=== PATIENT | female | born 1975 | race Caucasian/White ===

== ENCOUNTER 2017-02-18 09:28 | Day surgery (SDC) | payer OTHER ==
[2017-02-15 09:12] VITALS: BMI 32.8
[~2017-02-18 09:28] MED LIST: LACTATED RINGERS 1,000 ML IV SCH; LIDOCAINE 1% 20 ML VIAL (10MG/ML) FOR IV START INTRADERMA PRN
[2017-02-18 10:02] VITALS: RESP 18; TEMP 98
[2017-02-18] MEDS ORDERED: LACTATED RINGERS 1,000 ML IV ONE (10:05)
[2017-02-18] MEDS ORDERED: PROPOFOL 10 MG/ML 20 ML VIAL IV ONE (11:22)
[2017-02-18 12:07] VITALS: BP 116/63; PULSE 60
--- NOTE | 2017-02-18 12:45 | P.PCN ---
Date of Procedure: 02/18/17 Preoperative Diagnosis: Postoperative Diagnosis: Procedure(s) Performed: Brief history: Patient is a pleasant 41-year-old white female, scheduled for an elective upper endoscopy as well as colonoscopy as a part of evaluation of abdominal pain, intermittent nausea vomiting and change in bowel habits for the last 3 months duration. Procedure performed: Esophagogastroduodenoscopy with biopsy Colonoscopy with biopsy Preoperative diagnosis: Abdominal pain, change in bowel habits, nausea vomiting Anesthesia: MAC Procedure: After informed consent was obtained from the patient was brought into the endoscopy unit and IV sedation was administered by anesthesia under continuous monitoring. Initially upper endoscopy was done. The Olympus GF 160 video endoscope was inserted inserted into the mouth and esophagus intubated without any difficulty and was gradually advanced into the stomach and duodenum and carefully examined. The bulb and second part of the duodenum appeared normal. The scope was then withdrawn into the stomach adequately insufflated with air and upon careful examination the antrum had mild gastritis and biopsies were done from this area. The body, cardia and fundus appeared normal. The scope was then withdrawn into the esophagus. The GE junction was located at 40 cm to the incisors. It appeared regular with no erythema erosions or ulcerations. Rest of the esophagus appeared normal. Patient tolerated the procedure well. At this time the patient continued to remain sedation. Initial digital rectal examination was normal. Olympus CF 160 video colonoscope was then inserted into the rectum and gradually advanced to the cecum without any difficulty. Careful examination was performed as the scope was gradually being withdrawn. The prep was excellent. The cecum, ascending colon, transverse colon, descending colon, sigmoid colon and rectum appeared normal. Retroflexion was performed in the rectum and no lesions were noted. Patient tolerated the procedure well. random biopsies were done from the ascending and descending colon to rule out microscopic/collagenous colitis Impression: 1. Upper endoscopy revealed mild antral gastritis but no evidence of esophagitis or peptic ulcer disease 2. Colonoscopy was essentially within normal limits with no evidence of colitis or colorectal neoplasia Recommendations: Findings of this examination were discussed with the patient as well as her family. She was advised to follow with the biopsy results. She'll be seen in the office in 3-4 weeks. Implants: Indications for Procedure: Operative Findings: Description of Procedure:
== END 2017-02-18 12:31 | disposition home or self-care (01) ==
LOC: ORWHC2ENDO 09:28
PROVIDERS: ATTEND Internal Medicine Gastroenterology
DX: K29.50 Unspecified chronic gastritis without bleeding (principal); R19.4 Change in bowel habit; J45.909 Unspecified asthma, uncomplicated; K21.9 Gastro-esophageal reflux disease without esophagitis; Z79.1 Long term (current) use of non-steroidal anti-inflammatories (NSAID); Z79.52 Long term (current) use of systemic steroids; Z79.899 Other long term (current) drug therapy
CPT/HCPCS: 81025; 88305; 88342; 45380; 43239; J2704

== ENCOUNTER 2017-04-20 17:10 | Emergency (ER) | payer OTHER ==
[2017-04-20 17:37] VITALS: RESP 18
--- NOTE | 2017-04-20 18:40 | ED ---
General Adult HPI - General Chief complaint: Urogenital Stated complaint: Female Time Seen by Provider: 04/20/17 18:09 Source: patient, RN notes reviewed Mode of arrival: ambulatory Limitations: no limitations - History of Present Illness Initial comments: This is a 41-year-old female who presents to the emergency department today with chief complaint of vaginal sores. Four days ago she developed vaginal itching and believes she had a yeast infection and treated herself with over-the -counter Nystatin. She discontinued the Nystatin 2 days ago because she developed vaginal sores and tenderness to the external genitalia. Patient claims she has not been sexually active for the last 3 years and there is no chance she could have an STD. Patient also complains of bilateral lower back pain. She does state that she works at an [employer] home and lifts heavy weight daily. Will run a UA on her to rule out any urinary pathology. - Related Data Home Medications Medication Instructions Recorded Confirmed Dicyclomine [Bentyl] 10 mg PO TID 02/15/17 04/20/17 LORazepam [Ativan] 0.25 - 0.5 mg PO TID PRN 02/15/17 04/20/17 Meloxicam [Mobic] 15 mg PO DAILY 02/15/17 04/20/17 PARoxetine HCL [Paxil] 40 mg PO DAILY 02/15/17 04/20/17 Hydrocortisone Oint 1 applic NASAL BID 04/20/17 04/20/17 [Hydrocortisone 2.5% Oint] Metoprolol Succinate [Toprol XL] 25 mg PO DAILY 04/20/17 04/20/17 Mupirocin 2% Oint [Bactroban 2% 1 applic NASAL DAILY 04/20/17 04/20/17 Oint] Previous Rx's Medication Instructions Recorded Fluconazole [Diflucan] 150 mg PO DAILY #2 tab 04/20/17 metroNIDAZOLE [Flagyl] 500 mg PO TID #21 tab 04/20/17 Allergies Allergy/AdvReac Type Severity Reaction Status Date / Time cephalexin [From Keflex] Allergy Rash/Hives Verified 04/20/17 17:59 erythromycin base Allergy Rash/Hives Verified 04/20/17 17:59 latex Allergy ITCHING Verified 04/20/17 17:59 AND HIVES morphine Allergy Anaphylaxis Verified 04/20/17 17:59 Review of Systems ROS Statement: Those systems with pertinent positive or pertinent negative responses have been documented in the HPI. ROS Other: All systems not noted in ROS Statement are negative. Past Medical History Past Medical History: Asthma, GERD/Reflux, Neurologic Disorder, Pulmonary Embolus (PE) Additional Past Medical History / Comment(s): MIGRAINES. SCLERODERMA. IBS. PE BILAT LUNGS History of Any Multi-Drug Resistant Organisms: C-DIFF Past Surgical History: Adenoidectomy, Section, Cholecystectomy, Tonsillectomy, Tubal Ligation, Uterine Ablation Additional Past Surgical History / Comment(s): COLONOSCOPY. EGD. RECTOCELE Past Anesthesia/Blood Transfusion Reactions: No Reported Reaction Past Psychological History: Anxiety, Depression Smoking Status: Never smoker Past Alcohol Use History: Rare Past Drug Use History: None Reported - Past Family History Mother Family Medical History: Cancer General Exam - General Exam Comments Initial Comments: General: Awake and alert, well-developed; in no apparent distress. HEENT: Head atraumatic, normocephalic. Pupils are equal, round and reactive to light. Extraocular movements intact. Oropharynx moist without erythema or exudate. Neck: Supple. Normal ROM. No JVD. Trachea midline. No adenopathy. Cardiovascular: Regular rate and rhythm. No murmurs, rubs or gallops. Chest symmetrical. Respiratory: Lungs clear to auscultation bilaterally. No wheezes, rales or rhonchi. Normal respiratory efffort with no use of accessory muscles. Abdomen: Soft, non-tender, non-distended. No rigidity, rebound or guarding. Normal bowel sounds in all 4 quadrants. : Healing yellowish/white excoriations limited to the labia majora. Speculum exam revealed normal vaginal tissue with moderate amount of thin white, discharge in vaginal vault and cervical os. No vaginal bleeding. Vaginal odor noted on exam as well. Skin: Quinn, warm and dry. Neurological: Alert and oriented x3. CN II-XII grossly intact. Speech is fluent and answers are appropriate. No focal neuro deficits. Psychiatric: Normal mood and affect. No overt signs of depression or anxiety noted. Limitations: no limitations Course Vital Signs 04/20/17 17:32 Temperature 98.2 F Pulse Rate 87 Respiratory 18 Rate Blood Pressure 160/86 O2 Sat by Pulse 97 Oximetry Medical Decision Making - Medical Decision Making This is a 41-year-old female who presented with vaginal sores. They are likely caused by excoriation due to vaginal itching. White discharge present on speculum exam. Will cover for both bacterial vaginosis and vaginal yeast infection. Patient instructed to repeat dosage of Diflucan in 72 hours if no improvement seen. UA nonspecific findings. Likely contaminated because it was not a clean catch sample. - Lab Data Lab Results 04/20/17 Range/Units 18:53 Urine Color Yellow Urine Appearance Clear (Clear) Urine pH 5.0 (5.0-8.0) Ur Specific [place] 1.009 (1.001-1.035) Urine Protein Negative (Negative) Urine Glucose (UA) Negative (Negative) Urine Ketones Negative (Negative) Urine Blood Negative (Negative) Urine Nitrite Negative (Negative) Urine Bilirubin Negative (Negative) Urine Urobilinogen <2.0 (<2.0) mg/dL Ur Leukocyte Esterase Large H (Negative) Urine RBC 2 (0-5) /hpf Urine WBC 19 H (0-5) /hpf Ur Squamous Epith Cells <1 (0-4) /hpf Amorphous Sediment Occasional H (None) /hpf Urine Bacteria Occasional H (None) /hpf Urine Mucus Rare H (None) /hpf Disposition Clinical Impression: Vaginal yeast infection, Bacterial vaginosis Disposition: HOME SELF-CARE Condition: Good Instructions: Bacterial Vaginosis (ED), Vulvovaginal Candidiasis (ED) Additional Instructions: Please take medications as discussed. Repeat Diflucan 150 mg tab in 72 hours if needed. Please follow up with PCP within 2-3 days. Return to ED if symptoms should worsen. Prescriptions: Fluconazole [Diflucan] 150 mg PO DAILY #2 tab metroNIDAZOLE [Flagyl] 500 mg PO TID #21 tab Referrals: Jimbo Cardona MD [Primary Care Provider] - 1-2 days Time of Disposition: 19:33
[2017-04-20] MEDS ORDERED: FLUCONAZOLE 150 MG TAB PO STA (18:46)
[2017-04-20 19:20] LABS: Amorphous Sediment,Urine Occasional /hpf; Appearance,Urine Clear (Clear); Bacteria,Urine Occasional /hpf; Bilirubin,Urine Negative (Negative); Glucose,Urine (UA) Negative (Negative); Ketones,Urine Negative (Negative); Leukocyte Esterase,Urine Large (Negative); Mucus,Urine Rare /hpf; Nitrite,Urine Negative (Negative); Particle Count 2767; Protein,Urine Negative (Negative); RBC,Urine 2 /hpf (0-5); Specific Gravity,Urine 1.009 (1.001-1.035); Squamous Epithelial Cell,Urine <1 /hpf (0-4); UA Billing (MACRO vs. MICRO) MICRO; Urobilinogen,Urine <2.0 mg/dL (<2.0); WBC,Urine 19 /hpf (0-5)
[2017-04-20 19:55] VITALS: BP 167/91; PULSE 67; TEMP 98.1
== END 2017-04-20 19:55 | disposition home or self-care (01) ==
LOC: EC 17:10
DX: N76.0 Acute vaginitis (principal); B37.3 Candidiasis of vulva and vagina; F32.9 Major depressive disorder, single episode, unspecified; F41.9 Anxiety disorder, unspecified; Z88.1 Allergy status to other antibiotic agents; Z88.5 Allergy status to narcotic agent; Z91.040 Latex allergy status; Z79.1 Long term (current) use of non-steroidal anti-inflammatories (NSAID); Z79.899 Other long term (current) drug therapy
CPT/HCPCS: 81001; 99283

== ENCOUNTER 2017-05-03 21:11 | Emergency (ER) | payer OTHER ==
[2017-05-03] MEDS ORDERED: SODIUM CHLORIDE 0.9% 2,000 ML IV STA (21:38)
--- NOTE | 2017-05-03 21:50 | ED ---
General Adult HPI - General Chief complaint: Neuro Symptoms/Deficit Stated complaint: Lethargy Time Seen by Provider: 05/03/17 21:21 Source: patient, EMS Mode of arrival: EMS Limitations: no limitations - History of Present Illness Initial comments: Patient states she feels "slowed". Patient states she feels like her mind is working slowly, her body is moving slowly. Patient states symptoms started sometime today but she does not know when. Patient states was with her grandson taking a nap. Patient states her mother called the ambulance who brought her to the ER. Patient denies confusion, speech problems, other than feeling "slowed". Patient denies recent illness, fevers, chills, headaches, nausea, vomiting, abdominal pain, shortness of breath, chest pain, vision problems, numbness, focal weakness, changes in bowel or bladder habits. Patient states earlier today she was feeling anxious, states she has history of anxiety attacks, when asked if this feels like an anxiety attack patient states she does not know. Patient admits to tingling in her hands bilaterally. Patient states she is prescribed Bentyl for IBS, Paxil. Patient denies any recent changes in medication. Patient denies taking any extra medication or more than prescribed today. Patient denies any alcohol or drug use. Patient denies overdose on any medications. Patient denies history of thyroid disease. Patient denies suicidal or homicidal ideation. Patient denies depression. Patient states she is just frustrated because she feels like her mind and body are working slowly. Patient states her mouth feels dry. States "I don't feel like myself". She states she thought her blood sugar might be low, so she ate some peanut butter. Patient denies history of diabetes. Patient states her blood sugar usually runs low. MD Complaint: "feel slow" Onset/Timin -: days(s) - Related Data Home Medications Medication Instructions Recorded Confirmed Dicyclomine [Bentyl] 10 mg PO TID 02/15/17 05/03/17 Meloxicam [Mobic] 15 mg PO DAILY 02/15/17 05/03/17 PARoxetine HCL [Paxil] 40 mg PO QAM 02/15/17 05/03/17 Metoprolol Succinate [Toprol XL] 25 mg PO DAILY 04/20/17 05/03/17 Acetaminophen Tab [Tylenol Tab] 650 mg PO TID PRN 05/03/17 05/03/17 Albuterol Inhaler [Ventolin Hfa 1 - 2 puff INHALATION RT-Q6H PRN 05/03/17 Inhaler] Allergies Allergy/AdvReac Type Severity Reaction Status Date / Time erythromycin base Allergy Rash/Hives Verified 05/03/17 22:28 latex Allergy Itching/Silverio Verified 05/03/17 22:28 h morphine Allergy Anaphylaxis Verified 05/03/17 22:28 metronidazole [From Flagyl] AdvReac Nausea & Verified 05/03/17 22:28 Vomiting Review of Systems ROS Statement: Those systems with pertinent positive or pertinent negative responses have been documented in the HPI. ROS Other: All systems not noted in ROS Statement are negative. Constitutional: Reports: weakness (generalized). Denies: fever, chills Eyes: Denies: vision change ENT: Denies: throat pain, congestion Respiratory: Denies: cough, dyspnea, wheezes Cardiovascular: Denies: chest pain, palpitations Endocrine: Reports: fatigue, other (feels thirty. ) Gastrointestinal: Denies: abdominal pain, nausea, vomiting, diarrhea, constipation Genitourinary: Denies: urgency, dysuria, frequency, hematuria Musculoskeletal: Denies: back pain, arthralgia, myalgia Skin: Denies: rash Neurological: Reports: weakness (generalized). Denies: headache, numbness, paresthesias, confusion, vertigo Psychiatric: Reports: anxiety. Denies: depression, homicidal thoughts, suicidal thoughts Past Medical History Past Medical History: Asthma, GERD/Reflux, Neurologic Disorder, Pulmonary Embolus (PE) Additional Past Medical History / Comment(s): MIGRAINES. SCLERODERMA. IBS. PE BILAT LUNGS History of Any Multi-Drug Resistant Organisms: C-DIFF Past Surgical History: Adenoidectomy, Section, Cholecystectomy, Tonsillectomy, Tubal Ligation, Uterine Ablation Additional Past Surgical History / Comment(s): COLONOSCOPY. EGD. RECTOCELE Past Anesthesia/Blood Transfusion Reactions: No Reported Reaction Past Psychological History: Anxiety, Depression Smoking Status: Never smoker Past Alcohol Use History: Rare Past Drug Use History: None Reported - Past Family History Mother Family Medical History: Cancer General Exam - General Exam Comments Initial Comments: Patient laying in bed alert. No acute distress. Patient does seem mildly slowed in her thought process, speaking softly. Words are clear. Patient follows all commands, moves slowly. However when doing finger to nose testing patient able to move quickly. Patient does not appear in pain. Patient is otherwise well appearing, not ill appearing. Limitations: no limitations General appearance: alert, in no apparent distress Head exam: Present: atraumatic, normocephalic Eye exam: Present: normal appearance, PERRL, EOMI. Absent: scleral icterus, conjunctival injection Pupils: Present: normal accommodation (Pupils 4 mm and reactive bilaterally.) ENT exam: Present: normal oropharynx, mucous membranes dry, normal external ear exam Neck exam: Present: normal inspection, full ROM. Absent: tenderness, meningismus Respiratory exam: Present: normal lung sounds bilaterally. Absent: respiratory distress, wheezes, rales, rhonchi, stridor Cardiovascular Exam: Present: regular rate, normal rhythm, normal heart sounds GI/Abdominal exam: Present: soft. Absent: distended, tenderness, guarding, rebound, rigid Neurological exam: Present: alert, oriented X3, CN II-XII intact, other (Muscle strength 5 out of 5 in all extremities. Sensation grossly intact in all extremities. Finger to nose coordinated bilaterally. Pronator drift negative bilaterally. Alert and oriented 3. Patient does have delayed, soft speech). Absent: altered, motor sensory deficit Psychiatric exam: Present: normal mood, flat affect. Absent: depressed, homicidal ideation, suicidal ideation Skin exam: Present: warm, dry, intact, normal color. Absent: rash, cyanosis, diaphoretic, erythema, pallor Course Vital Signs 05/03/17 05/03/17 05/03/17 21:12 21:59 22:59 Temperature 98.4 F Pulse Rate 81 76 65 Respiratory 18 20 18 Rate Blood Pressure 174/89 173/86 150/77 O2 Sat by Pulse 98 97 99 Oximetry Medical Decision Making - Medical Decision Making Patient well appearing on exam other than mild delay in answering questions and movements at times. Patient does not admit to overdosing or taking any mind altering substances. Patient denies any changes in medication. Patient does not report any signs or symptoms of recent infection. EKG normal sinus rhythm, heart rate 74, QTc 466, QRS 90. UDS negative. No significant lab abnormalities. Patient reassessed, states "I feel much more like myself now". Patient's mother at bedside. Patient states she did feel very anxious while her grandson was sleeping on her chest, states she felt like she was beginning to have a panic attack. States she is normally able to count backwards to get herself out of it. Patient states she began having racing thoughts which is why she feels like she's had trouble getting her words out. Patient continues to deny suicidal or homicidal ideation. Patient states she feels like she is in a generalized state of fatigue, which she states she normally happens after panic attacks. Patient states she has Ativan as needed at home for anxiety attacks, however she tries not to take them, did not take one today. Patient states she seen a psychiatrist in the past, agrees to follow-up with her psychiatrist and primary care physician. Return to ED if new or worsening symptoms. Patient and family at bedside for comfortable going home at this time. All questions answered. - Lab Data Result diagrams: 05/03/17 21:24 05/03/17 22:12 Lab Results 05/03/17 05/03/17 05/03/17 Range/Units 21:24 21:24 21:24 WBC 9.8 (3.8-10.6) k/uL RBC 4.59 (3.80-5.40) m/uL Hgb 13.3 (11.4-16.0) gm/dL Hct 41.8 (34.0-46.0) % MCV 91.0 (80.0-100.0) fL MCH 29.0 (25.0-35.0) pg MCHC 31.9 (31.0-37.0) g/dL RDW 13.3 (11.5-15.5) % Plt Count 348 (150-450) k/uL Neutrophils % 64 % Lymphocytes % 24 % Monocytes % 7 % Eosinophils % 3 % Basophils % 0 % Neutrophils # 6.3 (1.3-7.7) k/uL Lymphocytes # 2.4 (1.0-4.8) k/uL Monocytes # 0.7 (0-1.0) k/uL Eosinophils # 0.3 (0-0.7) k/uL Basophils # 0.0 (0-0.2) k/uL Sodium (137-145) mmol/L Potassium (3.5-5.1) mmol/L Chloride (98-107) mmol/L Carbon Dioxide (22-30) mmol/L Anion Gap mmol/L BUN (7-17) mg/dL Creatinine (0.52-1.04) mg/dL Est GFR (MDRD) Af Amer (>60 ml/min/1.73 sqM) Est GFR (MDRD) Non-Af (>60 ml/min/1.73 sqM) Glucose (74-99) mg/dL POC Glucose (mg/dL) (75-99) mg/dL POC Glu Cloth Tester Quality ID Calcium (8.4-10.2) mg/dL Magnesium (1.6-2.3) mg/dL Total Bilirubin (0.2-1.3) mg/dL AST (14-36) U/L ALT (9-52) U/L Alkaline Phosphatase (38-126) U/L Total Protein (6.3-8.2) g/dL Albumin (3.5-5.0) g/dL Lipase (23-300) U/L TSH (0.465-4.680) mIU/L Urine Color Light Yellow Urine Appearance Clear (Clear) Urine pH 6.0 (5.0-8.0) Ur Specific [place] 1.004 (1.001-1.035) Urine Protein Negative (Negative) Urine Glucose (UA) Negative (Negative) Urine Ketones Negative (Negative) Urine Blood Negative (Negative) Urine Nitrite Negative (Negative) Urine Bilirubin Negative (Negative) Urine Urobilinogen <2.0 (<2.0) mg/dL Ur Leukocyte Esterase Negative (Negative) Urine HCG, Qual Not Detected (Not Detectd) Salicylates mg/dL Urine Opiates Screen Not Detected (NotDetected) Ur Oxycodone Screen Not Detected (NotDetected) Urine Methadone Screen Not Detected (NotDetected) Ur Propoxyphene Screen Not Detected (NotDetected) Acetaminophen ug/mL Ur Barbiturates Screen Not Detected (NotDetected) U Tricyclic Antidepress Not Detected (NotDetected) Ur Phencyclidine Scrn Not Detected (NotDetected) Ur Amphetamines Screen Not Detected (NotDetected) U Methamphetamines Scrn Not Detected (NotDetected) U Benzodiazepines Scrn Not Detected (NotDetected) Urine Cocaine Screen Not Detected (NotDetected) U Marijuana (THC) Screen Not Detected (NotDetected) Serum Alcohol mg/dL 05/03/17 05/03/17 Range/Units 22:04 22:12 WBC (3.8-10.6) k/uL RBC (3.80-5.40) m/uL Hgb (11.4-16.0) gm/dL Hct (34.0-46.0) % MCV (80.0-100.0) fL MCH (25.0-35.0) pg MCHC (31.0-37.0) g/dL RDW (11.5-15.5) % Plt Count (150-450) k/uL Neutrophils % % Lymphocytes % % Monocytes % % Eosinophils % % Basophils % % Neutrophils # (1.3-7.7) k/uL Lymphocytes # (1.0-4.8) k/uL Monocytes # (0-1.0) k/uL Eosinophils # (0-0.7) k/uL Basophils # (0-0.2) k/uL Sodium 137 (137-145) mmol/L Potassium 4.0 (3.5-5.1) mmol/L Chloride 104 (98-107) mmol/L Carbon Dioxide 24 (22-30) mmol/L Anion Gap 9 mmol/L BUN 11 (7-17) mg/dL Creatinine 0.58 (0.52-1.04) mg/dL Est GFR (MDRD) Af Amer >60 (>60 ml/min/1.73 sqM) Est GFR (MDRD) Non-Af >60 (>60 ml/min/1.73 sqM) Glucose 101 H (74-99) mg/dL POC Glucose (mg/dL) 109 H (75-99) mg/dL POC Glu Cloth Tester Quality ID McDaid, [place] Calcium 8.7 (8.4-10.2) mg/dL Magnesium 2.0 (1.6-2.3) mg/dL Total Bilirubin 0.4 (0.2-1.3) mg/dL AST 21 (14-36) U/L ALT 26 (9-52) U/L Alkaline Phosphatase 78 (38-126) U/L Total Protein 6.7 (6.3-8.2) g/dL Albumin 4.0 (3.5-5.0) g/dL Lipase 167 (23-300) U/L TSH 2.700 (0.465-4.680) mIU/L Urine Color Urine Appearance (Clear) Urine pH (5.0-8.0) Ur Specific [place] (1.001-1.035) Urine Protein (Negative) Urine Glucose (UA) (Negative) Urine Ketones (Negative) Urine Blood (Negative) Urine Nitrite (Negative) Urine Bilirubin (Negative) Urine Urobilinogen (<2.0) mg/dL Ur Leukocyte Esterase (Negative) Urine HCG, Qual (Not Detectd) Salicylates <1.0 mg/dL Urine Opiates Screen (NotDetected) Ur Oxycodone Screen (NotDetected) Urine Methadone Screen (NotDetected) Ur Propoxyphene Screen (NotDetected) Acetaminophen <10.0 ug/mL Ur Barbiturates Screen (NotDetected) U Tricyclic Antidepress (NotDetected) Ur Phencyclidine Scrn (NotDetected) Ur Amphetamines Screen (NotDetected) U Methamphetamines Scrn (NotDetected) U Benzodiazepines Scrn (NotDetected) Urine Cocaine Screen (NotDetected) U Marijuana (THC) Screen (NotDetected) Serum Alcohol <10 mg/dL Disposition Clinical Impression: Fatigue, Anxiety Disposition: HOME SELF-CARE Condition: Good Instructions: Fatigue (ED), Anxiety (ED) Additional Instructions: Make appointment with her former psychiatrist to discuss symptoms. If you need a new psychiatrist discuss with her primary care physician for referral. Referrals: Jimbo Cardona MD [Primary Care Provider] - 1-2 days
[2017-05-03 21:53] LABS: Appearance,Urine Clear (Clear); Bilirubin,Urine Negative (Negative); Glucose,Urine (UA) Negative (Negative); Ketones,Urine Negative (Negative); Leukocyte Esterase,Urine Negative (Negative); Nitrite,Urine Negative (Negative); Protein,Urine Negative (Negative); Specific Gravity,Urine 1.004 (1.001-1.035); UA Billing (MACRO vs. MICRO) CHEM; Urobilinogen,Urine <2.0 mg/dL (<2.0)
[2017-05-03 21:59] LABS: Basophils % (A) 0 %; CH 29.4; CHCM 32.5; Eosinophils # (A) 0.3 k/uL (0-0.7); Eosinophils % (A) 3 %; HCT 41.8 % (34.0-46.0); HDW 2.28; HGB 13.3 gm/dL (11.4-16.0); Luc # (Auto) 0.16; Luc % (Auto) 2; Lymphocytes # (A) 2.4 k/uL (1.0-4.8); Lymphocytes % (A) 24 %; MCHC 31.9 g/dL (31.0-37.0); Mean Platelet Volume 7.8; Monocytes # (A) 0.7 k/uL (0-1.0); Monocytes % (A) 7 %; Neutrophils # (A) 6.3 k/uL (1.3-7.7); Neutrophils % (A) 64 %; RBC 4.59 m/uL (3.80-5.40); RDW 13.3 % (11.5-15.5); WBC 9.8 k/uL (3.8-10.6); WBC (Perox) 10.15
[2017-05-03 22:08] LABS: Glucose,Whole Blood 109 mg/dL (75-99)
[2017-05-03 22:38] LABS: ALT 26 U/L (9-52); AST 21 U/L (14-36); Acetaminophen <10.0 ug/mL; Alcohol <10 mg/dL; Alkaline Phosphatase 78 U/L (38-126); Anion Gap 9 mmol/L; Blood Urea Nitrogen 11 mg/dL (7-17); Calcium 8.7 mg/dL (8.4-10.2); Carbon Dioxide 24 mmol/L (22-30); Chloride 104 mmol/L (98-107); Glucose 101 mg/dL (74-99); Non-African American GFR(MDRD) >60 (>60 ml/min/1.73 sqM); Salicylate <1.0 mg/dL; Sodium 137 mmol/L (137-145); Total Bilirubin 0.4 mg/dL (0.2-1.3); Total Protein 6.7 g/dL (6.3-8.2)
[2017-05-03 23:00] VITALS: BP 150/77; PULSE 65; RESP 18
[2017-05-04 00:21] VITALS: TEMP 97.1
== END 2017-05-04 00:20 | disposition home or self-care (01) ==
LOC: EC 21:11
DX: R53.83 Other fatigue (principal); F41.9 Anxiety disorder, unspecified; F32.9 Major depressive disorder, single episode, unspecified; K21.9 Gastro-esophageal reflux disease without esophagitis; K58.9 Irritable bowel syndrome, unspecified; Z79.1 Long term (current) use of non-steroidal anti-inflammatories (NSAID); Z79.899 Other long term (current) drug therapy; Z86.711 Personal history of pulmonary embolism
CPT/HCPCS: 36415; 80053; 80306; 80320; 81003; 81025; 83520; 83690; 83735; 84443; 85025; 93005; 96360; 96361; 99284

== ENCOUNTER → 2017-10-25 | Outpatient (CLI) | payer OTHER ==
--- NOTE | 2017-10-25 17:24 | XR ---
EXAMINATION TYPE: XR wrist complete LT DATE OF EXAM: 10/25/2017 CLINICAL HISTORY: Ulnar-sided wrist pain after injury. TECHNIQUE: Frontal, lateral and oblique images of the left wrist are obtained. Additional scaphoid v iew was obtained. COMPARISON: None FINDINGS: There is no acute fracture/dislocation evident in the left wrist. The joint spaces in the left wrist appear within normal limits. The overlying soft tissue appears unremarkable. IMPRESSION: There is no acute fracture or dislocation in the left wrist.
== END | disposition home or self-care (01) ==
LOC: RADXRMAIN 16:52
PROVIDERS: ATTEND Emergency Medicine
DX: S63.502A Unspecified sprain of left wrist, initial encounter (principal)

== ENCOUNTER → 2017-12-27 | Outpatient (CLI) | payer OTHER ==
[2017-12-27 10:36] LABS: HCT 41.1 % (34.0-46.0); HGB 13.4 gm/dL (11.4-16.0); MCH 28.4 pg (25.0-35.0); MCHC 32.7 g/dL (31.0-37.0); MCV 86.9 fL (80.0-100.0); Mean Platelet Volume 6.7; Platelet Count 345 k/uL (150-450); RBC 4.73 m/uL (3.80-5.40); RDW 12.9 % (11.5-15.5); WBC 7.5 k/uL (3.8-10.6)
[2017-12-27 11:02] LABS: Anion Gap 14 mmol/L; Blood Urea Nitrogen 10 mg/dL (7-17); Carbon Dioxide 23 mmol/L (22-30); Chloride 103 mmol/L (98-107); Potassium 4.7 mmol/L (3.5-5.1); Sodium 140 mmol/L (137-145)
== END | disposition home or self-care (01) ==
LOC: LABWHC1 09:34
PROVIDERS: ATTEND Internal Medicine Cardiovascular Disease
DX: R00.2 Palpitations (principal)
CPT/HCPCS: 36415; 80051; 82565; 84443; 84520; 85027

== ENCOUNTER → 2018-01-02 | Outpatient (CLI) | payer OTHER ==
--- NOTE | 2018-01-02 12:49 | MR ---
EXAMINATION TYPE: MR wrist LT wo con DATE OF EXAM: 01/02/2018 COMPARISON: NONE HISTORY: Left wrist pain, injury TECHNIQUE: Multiplanar, multisequence images of the left wrist were acquired per MRI departmental pro tocol. FINDINGS: There is a punctate tear of the volar radioulnar ligament component of the triangle fibrocartilage wi th small amount of fluid seen in the distal radioulnar joint. There is normal intermediate signal int ensity evident in the ulnar attachment. The scapholunate ligament appears intact. Proximal and distal carpal rows are maintained. Osseous degenerative cyst are noted within the capitate. No focal bone m arrow edema to suggest occult fracture. No evidence of acute fracture or malalignment. Additional note is made of a dorsal ganglion cyst posterior to the lunate measuring 0.4 x 0.6 x 0.6 c m deep to the extensor tendons. Flexor tendons, radial nerve, radial artery, ulnar nerve, and ulnar a rtery appear unremarkable. No subcutaneous soft tissue swelling. IMPRESSION: 1. No evidence of occult fracture or bone marrow edema. 2. Punctate tear of the volar radioulnar ligament component of the triangle fibrocartilage. 3. Incidentally noted dorsal subcentimeter ganglion cyst posterior to the lunate. 4. Few small degenerative osseous cyst within the capitate.
== END ==
LOC: RADMRIMAIN 10:14
PROVIDERS: ATTEND Orthopaedic Surgery
DX: S63.592A Other specified sprain of left wrist, initial encounter (principal); M67.432 Ganglion, left wrist; M85.68 Other cyst of bone, other site